=== PATIENT | female | born 1990 | race Caucasian/White ===

== ENCOUNTER 2017-06-23 17:14 | Emergency (ER) | payer BC ==
[2017-06-23 17:22] VITALS: RESP 16; O2SAT 100
[2017-06-23] MEDS ORDERED: Sodium Chloride 0.9% 1,000 ML IV STA (17:31)
--- NOTE | 2017-06-23 17:35 | ED PDOC ---
HPI:STROKE - Time Time: 17:32 - Historian Historian: Patient - Chief Complaint Chief Complaint: Numbness - Onset Date: 06/23/17 Time: 15:30 - Timing Timing: Improved - TPA Positive for Contraindication: Yes Reason tPA is not being Administered: NIH less then 3 - Notes: Notes:: Pt. was doing well when she suddenly got dizziness like light-headed and then developed R hand numbness and R face numbness. Upon arrival to the ED, pt. dizziness is gone but started getting headache like her usual migraine. States not the worst in her life. The numbness is also gone, but feels week in R hand. Does not usually get numbess in her migraine. No fever, cough, neck pain. Has blurry vision with her symptoms in the right eye, but is gone now. No dyspnea, leg issues, chest pain. No control or long distance travel. States same episode and symptoms 10 years ago and had a full work up with no findings. NIHSS Stroke Scale - Date/Time Evaluation Performed Date Performed: 06/23/17 Time Performed: 17:35 When Was NIHSS Performed: Baseline - How Severe is the Stroke Level of Consciousness: 0=Alert LOC to Questions: 0=Both comments correct LOC to commands: 0=Obeys both correctly Best Gaze: 0=Normal Visual: 0=No visual loss Facial: 0=Normal Motor Arm - Left: 0=No drift Motor Arm - Right: 0=No drift Motor Leg - Left: 0=No drift Motor Leg - Right: 0=No drift Limb Ataxia: 0=Absent Sensory: 0=Normal Best Language: 0=No aphasia Dysarthia: 0=Normal articulation Extinction & Inattention (Neglect): 0=Normal, no object Score: 0 rTPA Inclusion/Exclusion - Refusal of Treatment Patient Refused Treatment: No - Inclusion Criteria for Altepase Patient is 18 years or Older: Yes The Clinical Diagnosis of Ischemic Stroke That is Causing a Potentially Disabling Neurological Deficit: No Time of Onset is Well Established to be Less Than 270 Minute Before Treatment Would Begin: Yes Risk/Benefit Discussed With Patient/Family Member Present: No Past Medical History Reviewed: Nursing Documentation, Vital Signs Vital Signs: Last Vital Signs Temp 98.3 F 06/23/17 17:17 Pulse 78 06/23/17 17:17 Resp 16 06/23/17 17:17 BP 142/88 06/23/17 17:17 Pulse Ox 100 06/23/17 17:17 - Medical History PMH: Migraine - Surgical History Surgical History: No Surg Hx - Family History Family History: States: Unknown Family Hx - Social History Current smoker - smoking cessation education provided: No Alcohol: None Drugs: Denies - Home Medications Home Medications: Ambulatory Orders Medication Instructions Recorded Esomeprazole Magnesium [Nexium] 20 mg PO DAILY 06/23/17 - Allergies Allergies/Adverse Reactions: Allergies Allergy/AdvReac Type Severity Reaction Status Date / Time No Known Allergies Allergy Verified 06/23/17 17:17 Review of Systems ROS Statement: Except As Marked, All Systems Reviewed And Found Negative Constitutional: Positive for: Weakness Cardiovascular: Positive for: Light Headedness Neurological: Positive for: Weakness, Numbness, Headache, Dizziness Physical Exam - Reviewed Nursing Documentation Reviewed: Yes Vital Signs Reviewed: Yes - Physical Exam Appears: Positive for: Non-toxic, No Acute Distress Head Exam: Positive for: ATRAUMATIC, NORMAL INSPECTION, NORMOCEPHALIC Skin: Positive for: Normal Color, Warm, DRY Eye Exam: Positive for: EOMI, Normal appearance, PERRL ENT: Positive for: Normal ENT Inspection Neck: Positive for: Normal, Painless ROM, Supple. Negative for: Decreased ROM Cardiovascular/Chest: Positive for: Regular Rate, Rhythm Respiratory: Positive for: CNT, Normal Breath Sounds Gastrointestinal/Abdominal: Positive for: Normal Exam, Bowel Sounds, Soft. Negative for: Tenderness Back: Positive for: Normal Inspection. Negative for: L CVA Tenderness, R CVA Tenderness Extremity: Positive for: Normal ROM. Negative for: Tenderness, Pedal Edema Neurologic/Psych: Positive for: Alert, operating room surgical technician II-XII, Oriented. Negative for: Motor/Sensory Deficits, Gait, Aphasia, Facial Droop - Laboratory Results Result Diagrams: 06/23/17 17:42 06/23/17 17:42 Interpretation Of Abn Labs: no acute - ECG O2 Sat by Pulse Oximetry: 100 - CT Scan/US head Other Rad Studies (CT/US): Read By Radiologist Other Rad Interpretation: no acute - Progress ED Course And Treament: 2020: Stable. Spoke with Dr. Watts who saw pt. in the ER. States pt. can be dc. Is a complex migraine. Wants pt. to get ASA prior to dc. Fu with him. Pt. is aaox3. Pain free. No weakness or numbness. Ambulated with no issues. Disposition - Clinical Impression Clinical Impression: Migraine - Patient ED Disposition Is Patient to be Admitted: No Counseled Patient/Family Regarding: Studies Performed, Diagnosis, Need For Followup - Disposition Referrals: Refugio Watts MD [Medical Doctor] - 06/24/17 Disposition: Routine/Home Disposition Time: 20:24 Condition: STABLE Additional Instructions: Return if not better in 3 days. Instructions: Migraine Headache (ED) Forms: [employer] ([place]ijani)
[2017-06-23 17:48] LABS: BASO % 0.4 % (0.0-2.0); EOS # 0.1 K/uL (0.0-0.7); EOS % 1.6 % (0.0-4.0); HEMATOCRIT 39.3 % (34.0-47.0); MEAN CORPUSCULAR HEMOGLOBIN 30.4 pg (27.0-31.0); MEAN CORPUSCULAR HGB CONC 34.6 g/dL (33.0-37.0); MEAN PLATELET VOLUME 7.6 fl (7.2-11.7); MONO # 0.5 K/uL (0.0-0.8); MONO % 7.6 % (0.0-10.0); NEUT % 60.4 % (50.0-75.0); NRBC % 0.2 % (0.0-0.0); RED CELL DISTRIBUTION WIDTH 12.9 % (11.5-14.5); WHITE BLOOD COUNT 6.5 K/uL (4.8-10.8)
--- NOTE | 2017-06-23 17:48 | CT ---
PROCEDURE: CT HEAD WITHOUT CONTRAST. HISTORY: code stroke COMPARISON: None available. TECHNIQUE: Axial computed tomography images were obtained through the head/brain without intravenous contrast. Radiation dose: Total exam DLP = 839.18 mGy-cm. This CT exam was performed using one or more of the following dose reduction techniques: Automated exposure control, adjustment of the mA and/or kV according to patient size, and/or use of iterative reconstruction technique. FINDINGS: HEMORRHAGE: No acute parenchymal, subarachnoid or extra-axial hemorrhage. BRAIN: No evidence of large acute infarct. . 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 Ventricular and sulcal size are within range of normal for this patient's stated age. VENTRICLES: No obstructive hydrocephalus CALVARIUM: No acute calvarial fractures. PARANASAL SINUSES: Visualized paranasal sinuses are well-developed and currently well-aerated. MASTOID AIR CELLS: Well-developed and currently well-aerated. OTHER FINDINGS: None. IMPRESSION: No acute intracranial hemorrhage or or large acute infarcts seen. . Incidental note made of a small pineal gland cyst
[2017-06-23 17:58] LABS: ALB/GLOB RATIO 1.6 (1.0-2.1); ALKALINE PHOSPHATASE 39 U/L (38-126); ALT/SGPT 25 U/L (9-52); AST/SGOT 33 U/L (14-36); BILIRUBIN,TOTAL 0.7 mg/dl (0.2-1.3); BLOOD UREA NITROGEN 16 mg/dl (7-17); CALCIUM 10.1 mg/dL (8.4-10.2); CARBON DIOXIDE 24 mmol/L (22-30); CHLORIDE 102 mmol/L (98-107); CHOLESTEROL 147 mg/dL (0-199); GFR AFRICAN-AMERICAN > 60; GLUCOSE,RANDOM 91 mg/dL (65-105); SODIUM 138 mmol/l (132-148); TOTAL PROTEIN 7.9 G/DL (6.3-8.2)
[2017-06-23 18:05] LABS: POTASSIUM 4.3 MMOL/L (3.6-5.0)
[2017-06-23 18:31] LABS: PARTIAL THROMBOPLASTIN TIME 35.8 Seconds (25.6-37.1)
[2017-06-23 19:27] VITALS: BP 101/59; PULSE 76; TEMP 97.9
--- NOTE | 2017-06-23 21:37 | CON ---
DATE: REASON FOR CONSULTATION: Right-sided weakness. CHIEF COMPLAINT: The patient was brought in to [facility] with a history of dizziness and right-sided weakness. From neurologic point of view, I was called in to evaluate her for further management. HISTORY OF PRESENT ILLNESS: The patient is a 26-year-old right-handed female, while she was at work around 3:30 p.m., suddenly she felt dizziness, lightheadedness, associating with right-sided numbness and tingling sensation. The symptoms somewhat disappeared at the time she came to emergency room, however, she felt slight weakness of the right arm. This episode is not associating with some headache. She has had similar episodes that happened 10 years ago and she was diagnosed as migraine. No family history of migraine. She is not , never been . PAST MEDICAL HISTORY: Unremarkable. SOCIAL HISTORY: No history of smoking or alcohol use. ALLERGIES: NO ALLERGIES. PHYSICAL EXAMINATION NECK: Supple. No carotid bruits. HEART: Sounds irregular. CHEST: Fair air entry. EXTREMITIES: No edema in legs. NEUROLOGIC: MENTAL STATUS EXAMINATION: She is awake, alert, oriented to person, place and time. Speech is clear. Naming, repetition, fluency, comprehension all within normal. No sign of confusion. No sign of depression. No sign of suicidal ideation. CRANIAL NERVE EXAMINATION: Visual field is intact. Pupils reactive to light. Extraocular movement normal. No nystagmus. No facial sensory deficit. No facial asymmetry. Hearing seems to be intact. Tongue is moist and midline. Good gag. MOTOR EXAMINATION: Outstretched hand with eyes closed, no drift is noted. Power symmetric on either side. DEEP TENDON REFLEXES: Biceps, brachialis, and triceps 2+ on either side. COORDINATION: Cwkdzc-[id number]-ijdway test is intact. GAIT: Normal. CONCLUSION: Upon reviewing neurological examination, Ms. 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 The current examination does not show any evidence of long tract of signs. The patient does not have any risk factors consistent with stroke process. RECOMMENDATIONS: The patient can be discharged with NSAID and antiemetic drug. The patient was advised to take aspirin 81 mg for stroke prophylaxis. The patient is advised to see me as outpatient. In case if any symptoms get worse, I have advised to come to the emergency room. The patient is advised to drink enough water. The patient's condition is to be discussed with ER physician. ADDENDUM: The patient's workup in the ER has been reviewed. CAT scan and blood workup all negative. Refugio Watts MD FEL[facility]IA
--- NOTE | 2017-06-24 07:31 | CARD ---
APPROVED REPORT EKG Measurement Heart [id number] <Conclusion> Normal sinus rhythm with sinus arrhythmia Normal ECG
== END 2017-06-23 20:42 | disposition home or self-care (01) ==
LOC: H.ER 17:14
DX: G43.909 Migraine, unspecified, not intractable, without status migrainosus (principal); R20.2 Paresthesia of skin
CPT/HCPCS: 70450; 80053; 80061; 81025; 82948; 83036; 84484; 85025; 85610; 85730; 86850; 86900; 93005; 96374; 99284; J2765; J7040